=== PATIENT | male | born 1980 | race Caucasian/White ===

== ENCOUNTER 2017-07-07 05:52 | Emergency (ER) | payer OTHER ==
[~2017-07-07] VITALS: Ht 185.4 cm; Wt 88.6 kg
[2017-07-07 08:35] VITALS: BP 128/77
== END 2017-07-07 08:38 | disposition home or self-care (01) ==
LOC: ED 06:15
DX: S62.024A Nondisplaced fracture of middle third of navicular [scaphoid] bone of right wrist, initial encounter for closed fracture (principal); W23.0XXA Caught, crushed, jammed, or pinched between moving objects, initial encounter; Y93.89 Activity, other specified; Y99.0 Civilian activity done for income or pay; Y92.69 Other specified industrial and construction area as the place of occurrence of the external cause
CPT/HCPCS: 29125; 99284